=== PATIENT | male | born 1990 | race Caucasian/White ===

== ENCOUNTER → 2019-12-21 | Outpatient (CLI) | payer BC ==
[~2019-12-21] MED LIST: FLEXERIL PO; MELOXICAM15 MG PO; ROXICODONE5 M2 PO; SERTRALINE HCL100 MG PO
== END ==
LOC: M.PC 09:30
DX: M47.26 Other spondylosis with radiculopathy, lumbar region (principal); M51.16 Intervertebral disc disorders with radiculopathy, lumbar region; M79.605 Pain in left leg

== ENCOUNTER → 2020-07-09 | Outpatient (CLI) | payer BC | LOC: M.PC 10:40 | PROVIDERS: ATTEND Physical Medicine & Rehabilitation | DX: M51.16 Intervertebral disc disorders with radiculopathy, lumbar region (principal); M54.17 Radiculopathy, lumbosacral region; M51.06 Intervertebral disc disorders with myelopathy, lumbar region; M96.1 Postlaminectomy syndrome, not elsewhere classified ==

== ENCOUNTER → 2020-10-31 | Outpatient (CLI) | payer BC ==
[~2020-10-31] MED LIST changes: +METFORMIN HCL500 M3 PO; +NEURONTIN300 MG PO; +TESTOSTERONE1.25 GM TRANSDERM
== END ==
LOC: M.PC 10-29 08:00
PROVIDERS: ATTEND Physical Medicine & Rehabilitation
DX: M47.26 Other spondylosis with radiculopathy, lumbar region (principal); Z79.891 Long term (current) use of opiate analgesic

== ENCOUNTER → 2020-11-07 | Outpatient (CLI) | payer BC | END | disposition home or self-care (01) | LOC: M.PC 08:02 | PROVIDERS: ATTEND Physical Medicine & Rehabilitation | DX: M51.16 Intervertebral disc disorders with radiculopathy, lumbar region (principal); M51.46 Schmorl's nodes, lumbar region; G89.29 Other chronic pain; E11.9 Type 2 diabetes mellitus without complications; Z98.890 Other specified postprocedural states; Z79.899 Other long term (current) drug therapy ==

== ENCOUNTER → 2020-11-21 | Outpatient (CLI) | payer BC | LOC: M.PC 09:00 | PROVIDERS: ATTEND Physical Medicine & Rehabilitation | DX: M51.17 Intervertebral disc disorders with radiculopathy, lumbosacral region (principal); M47.26 Other spondylosis with radiculopathy, lumbar region; M96.1 Postlaminectomy syndrome, not elsewhere classified ==

== ENCOUNTER → 2020-12-12 | Outpatient (CLI) | payer BC | LOC: M.PC 11-28 08:50 | PROVIDERS: ATTEND Physical Medicine & Rehabilitation | DX: M51.17 Intervertebral disc disorders with radiculopathy, lumbosacral region (principal); M47.26 Other spondylosis with radiculopathy, lumbar region; M96.1 Postlaminectomy syndrome, not elsewhere classified; M79.605 Pain in left leg ==

== ENCOUNTER → 2021-01-23 | Outpatient (CLI) | payer BC | LOC: M.PC 08:30 | PROVIDERS: ATTEND Physical Medicine & Rehabilitation | DX: M51.37 Other intervertebral disc degeneration, lumbosacral region (principal); M47.26 Other spondylosis with radiculopathy, lumbar region; M79.605 Pain in left leg; M96.1 Postlaminectomy syndrome, not elsewhere classified ==

== ENCOUNTER → 2021-03-11 | Outpatient (CLI) | payer BC ==
[~2021-03-11] MED LIST changes: +OXAYDO7.5 MG PO; +PERCOCET 7.5-31 EAC1 PO
== END ==
LOC: M.PC 09:05
PROVIDERS: ATTEND Physical Medicine & Rehabilitation
DX: M51.17 Intervertebral disc disorders with radiculopathy, lumbosacral region (principal); M47.27 Other spondylosis with radiculopathy, lumbosacral region; Z79.899 Other long term (current) drug therapy; Z79.891 Long term (current) use of opiate analgesic